=== PATIENT | female | born 1975 | race Caucasian/White ===

== ENCOUNTER 2016-05-15 19:34 | Emergency (ER) | payer OTHER, MEDICAID ==
[~2016-05-15] VITALS: Ht 165.1 cm; Wt 60.8 kg
[~2016-05-15 19:34] MED LIST: DILANTIN; NEURONTIN
[2016-05-15 19:40] VITALS: BP_SYST 145
--- NOTE | 2016-05-15 19:40 | NUR ---
Patient to ER bed 2 to gown for evaluation. Side rails up. Report given to MAURILIO SANTANA.
--- NOTE | 2016-05-15 19:50 | NUR ---
MD De Paz at bedside examining pt
[2016-05-15] MEDS ORDERED: NACL 0.9% 1,000 ML IV ONE (19:55)
--- NOTE | 2016-05-15 19:55 | NUR ---
Pt accompanied to ED with family family , c/o epigastric pain 4/10 x2 hrs, with nausea. Abdomen soft, nontender, BS x4. A&Ox4, denies SOB or chestpain, denies vomitting. Will continue to monitor
[2016-05-15] MEDS ORDERED: MAG HYDROX/AL HYDROX/SIMETH 30 ML, BELLADONNA ALKALOIDS/PHENOBARB 10 ML, LIDOCAINE VISC... PO ONE ×3 (20:00)
[2016-05-15 20:33] LABS: BILIRUBIN,URINE NEGATIVE (NEGATIVE); CLARITY/URINE CLEAR (CLEAR); COLOR,URINE YELLOW (YELLOW); GLUCOSE,URINE NEGATIVE (NEGATIVE); KETONES,URINE TRACE (NEGATIVE); LEUKOCYTE ESTERASE ,URINE NEGATIVE (NEGATIVE); NITRITE, URINE NEGATIVE (NEGATIVE); PROTEIN URINE NEGATIVE (NEGATIVE); UROBILINOGEN,URINE 0.2 (0.2-1.0)
[2016-05-15 20:37] LABS: ANION GAP 9 (5-15); CHLORIDE 101 mmol/L (98-107); CREATININE 0.68 mg/dL (0.55-1.30); GLUCOSE 101 mg/dL (70-99); POTASSIUM 4.1 mmol/L (3.5-5.1); SODIUM SERUM 138 mmol/L (136-145); UREA NITROGEN, BLOOD 17 mg/dL (8-21)
[2016-05-15 20:40] LABS: BLOOD, URINE TRACE (NEGATIVE)
[2016-05-15 20:42] LABS: BACTERIA,URINE FEW /HPF (None Seen); RBC,URINE 0-3 /HPF (0-3); WBC,URINE 0-3 /HPF (0-3)
[2016-05-15 20:43] LABS: HEMATOCRIT 36.9 % (36-48); HEMOGLOBIN 12.4 g/dL (12.0-16.0); MEAN CORPUSCULAR HEMOGLOBIN 30 pg (27-31); MEAN CORPUSCULAR HGB CONC 34 % (32-36); MEAN CORPUSCULAR VOLUME 89 fL (79.0-98.0); PLATELET COUNT (AUTO) 188 K/uL (130-430); RED BLOOD CELL COUNT(AUTO) 4.16 MIL/uL (4.2-6.2); RED CELL DISTRIBUTION WIDTH 12.6 % (9.0-15.0); WHITE BLOOD COUNT (AUTO) 6.2 K/uL (4.8-10.8)
[2016-05-15 20:43] LABS: MUCUS,URINE None Seen /LPF (None Seen)
[2016-05-15 20:45] LABS: ALANINE AMINOTRANSFERASE 11 U/L (12-78); ALBUMIN 3.5 g/dL (3.4-4.8); ASPARTATE AMINOTRANSFERASE 15 U/L (10-37); LIPASE 352 U/L (73-393); TOTAL BILIRUBIN 0.2 mg/dL (0.0-1.0); TOTAL PROTEIN, SERUM 6.6 g/dL (6.4-8.3)
[2016-05-15 20:49] LABS: BAND % (MANUAL) 0 % (0-6); BASOPHILS % (MANUAL) 0 % (0-2); EOSINOPHILS % (MANUAL) 0 % (0-7); GFR AFRICAN AMERICAN 124 mL/min (>90); LYMPHOCYTES % (MANUAL) 55 % (20-46); MONOCYTES % (MANUAL) 8 % (0-11)
[2016-05-15] MEDS ORDERED: MAGNESIUM CITRATE 300 ML ORAL SOLUTION PO ONE (21:00)
--- NOTE | 2016-05-15 21:12 | NUR ---
US performed at bedside, no sign of distress noted
[2016-05-15 22:10] VITALS: BP_SYST 142
--- NOTE | 2016-05-15 22:10 | NUR ---
Patient given written and verbal discharge instructions and verbalizes understanding. ER MD De Paz discussed with patient the results and treatment provided. Patient in stable condition. ID arm band removed. Rx of protonix given. Patient educated on pain management and to follow up with PMD. Pain Scale 0/10. Opportunity for questions provided and answered.
== END 2016-05-15 22:10 | disposition home or self-care (01) ==
LOC: SED 19:34
DX: R10.13 Epigastric pain (principal); R35.0 Frequency of micturition
CPT/HCPCS: 36415; 74000; 76700; 80053; 81000; 81025; 83690; 84484; 85007; 85027; 93005; 96360; 99285; J2001; J7030

== ENCOUNTER 2018-05-25 10:50 | Outpatient (CLI) | payer OTHER, MEDICAID | END 2018-05-25 21:31 | disposition home or self-care (01) | LOC: SRD 10:50 | PROVIDERS: ATTEND Internal Medicine | DX: M54.5 Low back pain (principal) | CPT/HCPCS: 72110 ==

== ENCOUNTER 2018-07-23 05:39 | Emergency (ER) | payer OTHER, MEDICAID ==
[~2018-07-23] VITALS: Ht 162.6 cm; Wt 60.8 kg
[2018-07-23 05:45] VITALS: BP_SYST 135
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
--- NOTE | 2018-07-23 05:48 | NUR ---
Placed in room 8 . Placed on patient monitor, blood pressure machine and pulse oximeter. To gown for exam. Side rails up. Report given to Good THORPE.
--- NOTE | 2018-07-23 05:55 | NUR ---
Dr. Lazo at bedside.
[2018-07-23] MEDS ORDERED: LIDOCAINE 1% 10 MG/ML, 20 ML MDV INJ ONE (06:15)
--- NOTE | 2018-07-23 06:20 | NUR ---
Pt's sister requests to clean matted blood from pt.'s hair. No active bleeding from lac site. Warm soapy water and clean wash clothes and towels provided.
[2018-07-23] MEDS ORDERED: DIPH-TET-PERTUS Vaccine 0.5 ML VIAL (ADACEL) I.M. ONE (06:30)
--- NOTE | 2018-07-23 06:30 | NUR ---
Lab at bedside.
[2018-07-23 06:39] LABS: BASOPHILS % (AUTO) 0.8 % (0.0-2.0); EOSINOPHILS # (AUTO) 0.1 K/uL (0.0-0.4); EOSINOPHILS % (AUTO) 1.8 % (0.0-4.0); HEMATOCRIT 40.2 % (36-48); HEMOGLOBIN 13.3 g/dL (12.0-16.0); LYMPHOCYTES # (AUTO) 2.7 K/uL (1.0-5.5); LYMPHOCYTES % (AUTO) 54.8 % (20.5-51.5); MEAN CORPUSCULAR HEMOGLOBIN 30 pg (27-31); MEAN CORPUSCULAR HGB CONC 33 % (32-36); MEAN CORPUSCULAR VOLUME 91 fL (79.0-98.0); MONOCYTES # (AUTO) 0.5 K/uL (0.0-1.0); MONOCYTES % (AUTO) 9.7 % (1.7-9.3); NEUTROPHILS # (AUTO) 1.6 K/uL (1.8-7.7); NEUTROPHILS % (AUTO) 32.9 % (40.0-70.0); PLATELET COUNT (AUTO) 187 K/uL (130-430); RED BLOOD CELL COUNT(AUTO) 4.44 MIL/uL (4.2-6.2); RED CELL DISTRIBUTION WIDTH 13.2 % (9.0-15.0); WHITE BLOOD COUNT (AUTO) 4.9 K/uL (4.8-10.8)
--- NOTE | 2018-07-23 06:44 | NUR ---
Pt to CT via stretcher.
[2018-07-23 06:50] LABS: CALCIUM 9.3 mg/dL (8.4-11.0); CREATININE 0.5 mg/dL (0.55-1.30); POTASSIUM 4.6 mmol/L (3.5-5.1)
--- NOTE | 2018-07-23 06:55 | NUR ---
Pt returns from CT, NAD. Sister at bedside and no needs verbalized at this time.
[2018-07-23 06:56] LABS: ALBUMIN 3.4 g/dL (3.4-4.8); TOTAL BILIRUBIN 0.5 mg/dL (0.0-1.0)
--- NOTE | 2018-07-23 07:10 | NUR ---
report from Mark THORPE
--- NOTE | 2018-07-23 07:30 | NUR ---
Patient in bed with noted laceration on the left wrist. Dr. Lazo @ bedside.
[2018-07-23 08:05] VITALS: BP_SYST 119
--- NOTE | 2018-07-23 08:05 | NUR ---
Patient given written and verbal discharge instructions and verbalizes understanding. ER MD discussed with patient the results and treatment provided. Patient in stable condition. ID arm band removed. No Rx given. Patient educated on pain management and to follow up with PMD. Pain Scale 0/10 . Opportunity for questions provided and answered. Medication side effect fact sheet provided. Patient non-verbal, responding non-verbally (head knoding and sign language with sisiter)to acknowledge understanding discharge instructions.
== END 2018-07-23 08:05 | disposition home or self-care (01) ==
LOC: SED 05:39
DX: S01.01XA Laceration without foreign body of scalp, initial encounter (principal); R56.9 Unspecified convulsions; W19.XXXA Unspecified fall, initial encounter; Y93.89 Activity, other specified; Y92.89 Other specified places as the place of occurrence of the external cause; Y99.8 Other external cause status
CPT/HCPCS: 12001; 36415; 70450; 80053; 80164; 81025; 85025; 90471; 90715; 99284; J2001

== ENCOUNTER 2018-11-18 18:28 | Emergency (ER) | payer OTHER, MEDICAID ==
[~2018-11-18] VITALS: Ht 170.2 cm; Wt 70.3 kg
[2018-11-18 19:42] VITALS: BP_SYST 141
--- NOTE | 2018-11-18 20:30 | NUR ---
Pt placed to ER bed 02 with mother. Report given to MAURILIO Morales.
--- NOTE | 2018-11-18 21:01 | NUR ---
Dr. Conklin bedside for Pt eval
[2018-11-18 21:15] VITALS: BP_SYST 141
--- NOTE | 2018-11-18 21:15 | NUR ---
Pt signed out AMADr. Conklin aware
== END 2018-11-18 21:15 | disposition left against medical advice (07) ==
LOC: SED 18:28
DX: R07.89 Other chest pain (principal); Z98.890 Other specified postprocedural states
CPT/HCPCS: 99281